=== PATIENT | male | born 1965 | race African-American/Black ===

== ENCOUNTER 2018-07-03 00:34 | Inpatient (IN) | payer MEDICAID ==
[~2018-07-03] VITALS: Ht 165.1 cm; Wt 77.1 kg
[2018-07-03] MEDS ORDERED: ONDANSETRON HCL 4MG/2ML INJ IV STA (02:15)
[2018-07-03] MEDS ORDERED: IPRATROPIUM BROMIDE (0.02%) 0.5MG/2.5ML NEB HHN STA (02:15)
[2018-07-03] MEDS ORDERED: METHYLPREDNISOLONE SOD SUCC 125 MG/2 ML VIAL IV STA (02:15)
[2018-07-03] MEDS: ALBUTEROL (0.083%) 2.5MG/3ML NEB HHN SCH ×3 (02:30→03:30)
[2018-07-03 03:25] LABS: CHLORIDE 106 mEq/L (98-107)
[2018-07-03 08:00] VITALS: BP 131/93
[2018-07-03 08:17] LABS: EOSINOPHILS % 7.6 % (0.0-5.0); HEMATOCRIT. 51.6 % (42.0-52.0); HEMOGLOBIN. 16.9 g/dL (14.0-18.0); LYMPHOCYTES % 12.8 % (20.0-50.0); MEAN CORPUSCULAR HEMOGLOBIN 28.7 pg (28.0-32.0); MEAN CORPUSCULAR VOLUME 87.4 fL (80.0-94.0); MEAN PLATELET VOLUME 9.4 fl (7.4-10.4); MONOCYTES % 6.6 % (2.0-8.0); PLATELET 290 x1000/uL (130-400); RED CELL DISTRIBUTION WIDTH 15.8 % (11.6-14.6)
[2018-07-03 09:00] VITALS: BP 131/93
[2018-07-03] MEDS ORDERED: ACETAMINOPHEN 325MG TABLET PO PRN (09:00)
[2018-07-03] MEDS ORDERED: ONDANSETRON HCL 4MG/2ML INJ IV PRN (09:00)
[2018-07-03] MEDS ORDERED: IPRATROPIUM/ALBUTEROL 0.5-3(2.5)MG/3ML NEB HHN PRN (09:00)
[2018-07-03 12:00] VITALS: BP 174/98
[2018-07-03 12:33] VITALS: BP 135/86
[2018-07-03] MEDS: GUAIFENESIN-DM 200MG-20MG/10ML UDC PO PRN (13:22)
[2018-07-03] MEDS: METHYLPREDNISOLONE SOD SUCC 40 MG/ML VIAL IV SCH ×2 (13:22→18:46)
[2018-07-03] MEDS: GUAIFENESIN 600MG ER TABLET PO SCH ×2 (13:26→20:48)
[2018-07-03 16:00] VITALS: BP 152/92
[2018-07-03 16:40] LABS: CLARITY URINE CLEAR (CLEAR); COLOR URINE YELLOW (YELLOW); KETONES URINE NEGATIVE (NEGATIVE); LEUKOCYTE ESTERASE URINE NEGATIVE (NEGATIVE); NITRITE URINE NEGATIVE (NEGATIVE); OCCULT BLOOD URINE NEGATIVE (NEGATIVE); PH URINE 6.5 (4.5-8.0); PROTEIN URINE NEGATIVE (NEGATIVE); SPECIFIC GRAVITY URINE 1.017 (1.005-1.030)
[2018-07-03] MEDS: IPRATROPIUM/ALBUTEROL 0.5-3(2.5)MG/3ML NEB HHN SCH ×2 (16:57→21:29)
[2018-07-03 16:58] LABS: *BARBITURATES SCREEN URINE NEGATIVE (NEGATIVE); *BENZODIAZEPINES SCREEN URINE NEGATIVE (NEGATIVE)
[2018-07-03 16:59] LABS: *AMPHETAMINES SCREEN URINE PRESUMTIVE POSITIVE (NEGATIVE); *COCAINE SCREEN URINE NEGATIVE (NEGATIVE); CANNABINOID URINE SCREEN PRESUMTIVE POSITIVE (NEGATIVE); METHADONE URINE SCREEN NEGATIVE (NEGATIVE); OPIATES URINE SCREEN NEGATIVE (NEGATIVE); PHENCYCLIDINE URINE SCREEN NEGATIVE (NEGATIVE)
[2018-07-03] MEDS: NICOTINE 14MG PATCH TD SCH (18:46)
[2018-07-03] MEDS: MONTELUKAST SODIUM 10MG TABLET PO SCH (18:46)
[2018-07-03] MEDS: AMLODIPINE 5MG TABLET PO SCH (18:51)
[2018-07-03 20:00] VITALS: BP_SYST 137; BP_SYST 160; BP_DIAS 100; BP_DIAS 95
[2018-07-04] VITALS: BP 137/95
[2018-07-04] MEDS: IPRATROPIUM/ALBUTEROL 0.5-3(2.5)MG/3ML NEB HHN SCH ×4 (01:34→20:24)
[2018-07-04] MEDS: METHYLPREDNISOLONE SOD SUCC 40 MG/ML VIAL IV SCH ×3 (02:03→17:20)
[2018-07-04 04:00] VITALS: BP 129/82
[2018-07-04 08:00] VITALS: BP 137/95
[2018-07-04] MEDS: NICOTINE 14MG PATCH TD SCH (09:35)
[2018-07-04] MEDS: GUAIFENESIN 600MG ER TABLET PO SCH ×2 (09:36→20:36)
[2018-07-04] MEDS: GUAIFENESIN-DM 200MG-20MG/10ML UDC PO PRN (09:36)
[2018-07-04] MEDS: AMLODIPINE 5MG TABLET PO SCH (09:36)
[2018-07-04 11:35] LABS: HEMOGLOBIN. 15.7 g/dL (14.0-18.0); MEAN CORPUSCULAR HEMOGLOBIN 28.1 pg (28.0-32.0); MEAN CORPUSCULAR VOLUME 87.4 fL (80.0-94.0); MEAN PLATELET VOLUME 9.3 fl (7.4-10.4); PLATELET 300 x1000/uL (130-400); RED BLOOD CELL COUNT 5.61 mill/uL (4.7-6.1); RED CELL DISTRIBUTION WIDTH 15.9 % (11.6-14.6)
[2018-07-04 12:00] LABS: CHLORIDE 103 mEq/L (98-107)
[2018-07-04 12:12] LABS: PLATELET ESTIMATE NORMAL
[2018-07-04 16:00] VITALS: BP 128/78
[2018-07-04] MEDS: MONTELUKAST SODIUM 10MG TABLET PO SCH (17:20)
[2018-07-04 20:00] VITALS: BP 139/92
[2018-07-05] VITALS: BP 132/93
[2018-07-05] MEDS: IPRATROPIUM/ALBUTEROL 0.5-3(2.5)MG/3ML NEB HHN SCH ×4 (00:44→12:50)
[2018-07-05] MEDS: METHYLPREDNISOLONE SOD SUCC 40 MG/ML VIAL IV SCH ×2 (01:51→09:22)
[2018-07-05 04:00] VITALS: BP 146/101
[2018-07-05 08:00] VITALS: BP 148/92
[2018-07-05] MEDS: GUAIFENESIN 600MG ER TABLET PO SCH (09:22)
[2018-07-05] MEDS: AMLODIPINE 5MG TABLET PO SCH (09:22)
[2018-07-05] MEDS: NICOTINE 14MG PATCH TD SCH (09:22)
[2018-07-05 12:00] VITALS: BP 162/100
== END 2018-07-05 15:40 | disposition home or self-care (01) | DRG 140 ==
LOC: ER 00:34 → 8WST 05:18 → EDBEDREQ 05:23 → EDBEDREQTM 05:23 → ENRESERV 08:11
PROVIDERS: ADMIT Internal Medicine; ATTEND Internal Medicine
DX: J44.1 Chronic obstructive pulmonary disease with (acute) exacerbation (principal); F12.90 Cannabis use, unspecified, uncomplicated; I10 Essential (primary) hypertension; F17.210 Nicotine dependence, cigarettes, uncomplicated; F15.90 Other stimulant use, unspecified, uncomplicated
CPT/HCPCS: 36415; 71045; 80048; 80305; 83880; 84484; 93005; 93970; 96374; 99285; J2405; J2920; J2930; J7611; J7620

== ENCOUNTER 2018-07-30 21:08 | Emergency (ER) | payer MEDICAID ==
[~2018-07-30] VITALS: Ht 154.9 cm; Wt 82.0 kg
[2018-07-30] MEDS ORDERED: ALBUTEROL (0.083%) 2.5MG/3ML NEB HHN STA (21:32)
[2018-07-30] MEDS ORDERED: IPRATROPIUM BROMIDE (0.02%) 0.5MG/2.5ML NEB HHN STA (21:32)
[2018-07-30] MEDS ORDERED: ONDANSETRON HCL 4MG/2ML INJ IV ONE (21:45)
[2018-07-30 21:58] LABS: HEMATOCRIT. 50.3 % (42.0-52.0); HEMOGLOBIN. 16.5 g/dL (14.0-18.0); MEAN CORPUSCULAR HEMOGLOBIN 28.4 pg (28.0-32.0); MEAN PLATELET VOLUME 9.3 fl (7.4-10.4); PLATELET 294 x1000/uL (130-400); RED BLOOD CELL COUNT 5.79 mill/uL (4.7-6.1); RED CELL DISTRIBUTION WIDTH 15.7 % (11.6-14.6)
[2018-07-30 22:00] LABS: CHLORIDE 105 mEq/L (98-107)
[2018-07-30 22:26] LABS: PLATELET ESTIMATE NORMAL
[2018-07-31] MEDS ORDERED: METHYLPREDNISOLONE SOD SUCC 125 MG/2 ML VIAL IV SCH
[2018-07-31] MEDS ORDERED: IPRATROPIUM BROMIDE (0.02%) 0.5MG/2.5ML NEB HHN SCH (00:34)
[2018-07-31] MEDS ORDERED: ALBUTEROL (0.083%) 2.5MG/3ML NEB HHN SCH (00:34)
[2018-07-31] MEDS ORDERED: IPRATROPIUM BROMIDE (0.02%) 0.5MG/2.5ML NEB ONE (00:43)
[2018-07-31] MEDS ORDERED: ALBUTEROL (0.083%) 2.5MG/3ML NEB ONE (00:43)
[2018-07-31 02:30] VITALS: BP 129/95
== END 2018-07-31 02:40 | disposition short-term general hospital (02) ==
LOC: ER 21:08 → CANBEDREQ 07-31 02:46
DX: J44.1 Chronic obstructive pulmonary disease with (acute) exacerbation (principal); F17.200 Nicotine dependence, unspecified, uncomplicated; F15.10 Other stimulant abuse, uncomplicated
CPT/HCPCS: 36415; 71045; 80053; 83880; 84484; 85025; 93005; 94644; 96374; 96375; 99285; J2405; J2930; J7611; Z7610

== ENCOUNTER 2018-11-17 11:48 | Emergency (ER) | payer MEDICAID ==
[~2018-11-17] VITALS: Ht 165.1 cm; Wt 88.0 kg
[2018-11-17] MEDS ORDERED: IPRATROPIUM BROMIDE (0.02%) 0.5MG/2.5ML NEB HHN STA (12:59)
[2018-11-17] MEDS ORDERED: ALBUTEROL (0.083%) 2.5MG/3ML NEB HHN STA (12:59)
[2018-11-17] MEDS ORDERED: MAGNESIUM 2 G PREMIX 50 ML IV STA (12:59)
[2018-11-17] MEDS ORDERED: METHYLPREDNISOLONE SOD SUCC 125 MG/2 ML VIAL IV STA (12:59)
[2018-11-17 13:07] LABS: HEMATOCRIT. 49.5 % (42.0-52.0); HEMOGLOBIN. 16.5 g/dL (14.0-18.0); MEAN CORPUSCULAR HEMOGLOBIN 28.5 pg (28.0-32.0); MEAN CORPUSCULAR VOLUME 85.3 fL (80.0-94.0); PLATELET 266 x1000/uL (130-400); RED CELL DISTRIBUTION WIDTH 16.6 % (11.6-14.6)
[2018-11-17 13:13] LABS: CHLORIDE 108 mEq/L (98-107)
[2018-11-17 13:30] LABS: PLATELET ESTIMATE NORMAL
[2018-11-17] MEDS ORDERED: SODIUM CHLORIDE 0.9% 1,000 ML IV ONE (14:07)
[2018-11-17] MEDS ORDERED: ENOXAPARIN 40MG/0.4ML SYR SUBCUT SCH (17:15)
[2018-11-17] MEDS ORDERED: GUAIFENESIN 200MG/10ML SUGAR FREE UDC PO PRN (17:15)
[2018-11-17] MEDS ORDERED: ACETAMINOPHEN 325MG TABLET PO PRN (17:15)
[2018-11-17] MEDS ORDERED: ONDANSETRON HCL 4MG/2ML INJ IV PRN (17:15)
[2018-11-17] MEDS ORDERED: DOCUSATE SODIUM 100MG CAPSULE PO PRN (17:15)
[2018-11-17] MEDS ORDERED: MAGNESIUM/ALUMINUM HYDROXIDE/SIMETHICONE 30ML UDC PO PRN (17:15)
[2018-11-17] MEDS ORDERED: IPRATROPIUM/ALBUTEROL 0.5-3(2.5)MG/3ML NEB INH PRN (17:15)
[2018-11-17] MEDS ORDERED: HYDROCODONE/ACETAMINOPHEN 5/325MG TABLET PO PRN (17:15)
[2018-11-17] MEDS ORDERED: CLONIDINE 0.1MG TABLET PO PRN (17:15)
[2018-11-17] MEDS ORDERED: DIPHENHYDRAMINE 50MG/ML VIAL IV PRN (17:15)
[2018-11-17 17:42] LABS: PHOSPHORUS 4.3 mg/dL (2.5-4.9)
[2018-11-17 19:20] VITALS: BP 160/94
== END 2018-11-18 00:09 | disposition left against medical advice (07) ==
LOC: ER 11:48 → EDBEDREQ 16:25 → ENRESERV 19:23 → CANRESERV 19:23 → CANBEDREQ 21:42 → ER 11-18 00:09
DX: J44.1 Chronic obstructive pulmonary disease with (acute) exacerbation (principal); F17.290 Nicotine dependence, other tobacco product, uncomplicated; Z71.6 Tobacco abuse counseling
CPT/HCPCS: 36415; 71045; 80053; 83735; 83880; 84100; 84484; 85025; 93005; 93970; 94644; 96365; 96375; 99285; 99406; A4217; J2930; J3475; J7030; J7611; Z7610

== ENCOUNTER 2018-12-09 21:24 | Inpatient (IN) | payer MEDICAID ==
[~2018-12-09] VITALS: Ht 170.2 cm; Wt 74.8 kg
[2018-12-09] MEDS ORDERED: ASPIRIN 81MG TABLET PO ONE (22:00)
[2018-12-09] MEDS ORDERED: METHYLPREDNISOLONE SOD SUCC 125 MG/2 ML VIAL IV STA (22:00)
[2018-12-09] MEDS ORDERED: ALBUTEROL (0.083%) 2.5MG/3ML NEB HHN STA (22:00)
[2018-12-09] MEDS ORDERED: IPRATROPIUM BROMIDE (0.02%) 0.5MG/2.5ML NEB HHN STA (22:00)
[2018-12-09 22:34] LABS: HEMOGLOBIN. 16.5 g/dL (14.0-18.0); MEAN CORPUSCULAR HEMOGLOBIN 29.2 pg (28.0-32.0); MEAN CORPUSCULAR VOLUME 85.1 fL (80.0-94.0); MEAN PLATELET VOLUME 8.8 fl (7.4-10.4); PLATELET 245 x1000/uL (130-400); RED BLOOD CELL COUNT 5.64 mill/uL (4.7-6.1); RED CELL DISTRIBUTION WIDTH 16.6 % (11.6-14.6)
[2018-12-09 22:39] LABS: CHLORIDE 105 mEq/L (98-107)
[2018-12-09 23:03] LABS: PLATELET ESTIMATE NORMAL
[2018-12-10] VITALS (7 sets, daily range): BP systolic 137–149; BP diastolic 85–104
[2018-12-10] MEDS ORDERED: LEVOFLOXACIN 500MG PREMIX 100 ML IV SCH ×2 (04:00→06:00)
[2018-12-10] MEDS ORDERED: IPRATROPIUM/ALBUTEROL 0.5-3(2.5)MG/3ML NEB HHN PRN (04:00)
[2018-12-10] MEDS: METHYLPREDNISOLONE SOD SUCC 40 MG/ML VIAL IV SCH ×3 (06:01→21:05)
[2018-12-10] MEDS: ENOXAPARIN 40MG/0.4ML SYR SUBCUT SCH (06:01)
[2018-12-10] MEDS: IPRATROPIUM/ALBUTEROL 0.5-3(2.5)MG/3ML NEB HHN SCH ×4 (08:42→21:25)
[2018-12-10] MEDS: NICOTINE 21MG PATCH TD SCH (09:14)
[2018-12-10] MEDS: FLUTICASONE PROPIONATE 50MCG/SPRAY BOTTLE BOTHNSTRLS SCH ×2 (09:14→21:05)
[2018-12-10] MEDS: AMLODIPINE 5MG TABLET PO SCH (21:05)
[2018-12-11] VITALS (7 sets, daily range): BP systolic 121–139; BP diastolic 73–94
[2018-12-11] MEDS: IPRATROPIUM/ALBUTEROL 0.5-3(2.5)MG/3ML NEB HHN SCH ×3 (00:39→11:21)
[2018-12-11] MEDS: METHYLPREDNISOLONE SOD SUCC 40 MG/ML VIAL IV SCH ×2 (05:55→15:17)
[2018-12-11] MEDS: NICOTINE 21MG PATCH TD SCH (09:08)
[2018-12-11] MEDS: FLUTICASONE PROPIONATE 50MCG/SPRAY BOTTLE BOTHNSTRLS SCH (09:08)
[2018-12-11] MEDS: AMLODIPINE 5MG TABLET PO SCH (09:08)
[2018-12-11] MEDS: ENOXAPARIN 40MG/0.4ML SYR SUBCUT SCH (09:08)
== END 2018-12-11 17:24 | disposition home or self-care (01) | DRG 139 ==
LOC: ER 21:24 → 7WST 23:49 → EDBEDREQ 12-10 00:02 → EDBEDREQTM 12-10 00:02 → ENRESERV 12-10 02:06
PROVIDERS: ADMIT Internal Medicine; ATTEND Internal Medicine
DX: J18.9 Pneumonia, unspecified organism (principal); J96.00 Acute respiratory failure, unspecified whether with hypoxia or hypercapnia; J44.1 Chronic obstructive pulmonary disease with (acute) exacerbation; F12.10 Cannabis abuse, uncomplicated; F15.10 Other stimulant abuse, uncomplicated; F17.210 Nicotine dependence, cigarettes, uncomplicated; I10 Essential (primary) hypertension; J44.0 Chronic obstructive pulmonary disease with (acute) lower respiratory infection; Z60.2 Problems related to living alone; Z71.6 Tobacco abuse counseling; Z71.51 Drug abuse counseling and surveillance of drug abuser; Z71.7 Human immunodeficiency virus [HIV] counseling
CPT/HCPCS: 36415; 71045; 83880; 84484; 93005; 94640; 96374; 99285; J1650; J1956; J2920; J2930; J7050; J7611; J7620

== ENCOUNTER 2019-04-22 10:27 | Emergency (ER) | payer MEDICAID ==
[~2019-04-22] VITALS: Ht 170.2 cm; Wt 59.0 kg
[2019-04-22] MEDS ORDERED: IPRATROPIUM BROMIDE (0.02%) 0.5MG/2.5ML NEB HHN STA (10:31)
[2019-04-22] MEDS ORDERED: ALBUTEROL (0.083%) 2.5MG/3ML NEB HHN STA (10:31)
[2019-04-22] MEDS ORDERED: METHYLPREDNISOLONE SOD SUCC 125 MG/2 ML VIAL IV STA (10:31)
[2019-04-22] MEDS ORDERED: MAGNESIUM 2 G PREMIX 50 ML IV ONE (10:45)
[2019-04-22 10:48] LABS: HEMATOCRIT. 48.9 % (42.0-52.0); HEMOGLOBIN. 16.2 g/dL (14.0-18.0); MEAN CORPUSCULAR HEMOGLOBIN 28.9 pg (28.0-32.0); MEAN CORPUSCULAR VOLUME 87.4 fL (80.0-94.0); MEAN PLATELET VOLUME 8.3 fl (7.4-10.4); PLATELET 336 x1000/uL (130-400); RED BLOOD CELL COUNT 5.59 mill/uL (4.7-6.1); RED CELL DISTRIBUTION WIDTH 15.7 % (11.6-14.6)
[2019-04-22 10:55] LABS: CHLORIDE 107 mEq/L (98-107); PROTHROMBIN TIME 9.8 sec (9.6-11.0)
[2019-04-22 11:13] LABS: PLATELET ESTIMATE NORMAL
[2019-04-22] MEDS ORDERED: GUAIFENESIN 200MG/10ML SUGAR FREE UDC PO PRN (12:30)
[2019-04-22] MEDS ORDERED: MAGNESIUM/ALUMINUM HYDROXIDE/SIMETHICONE 30ML UDC PO PRN (12:30)
[2019-04-22] MEDS ORDERED: DOCUSATE SODIUM 100MG CAPSULE PO PRN (12:30)
[2019-04-22] MEDS ORDERED: CLONIDINE 0.1MG TABLET PO PRN (12:30)
[2019-04-22] MEDS ORDERED: ENOXAPARIN 40MG/0.4ML SYR SUBCUT SCH (12:30)
[2019-04-22] MEDS ORDERED: NITROGLYCERIN 0.4MG TABLET SL SL PRN (12:30)
[2019-04-22] MEDS ORDERED: GUAIFENESIN/DM 600MG/30MG ER TAB 12HR PO SCH (12:30)
[2019-04-22] MEDS ORDERED: ACETAMINOPHEN 325MG TABLET PO PRN (12:30)
[2019-04-22] MEDS ORDERED: LORAZEPAM 0.5MG TABLET PO PRN (12:30)
[2019-04-22] MEDS ORDERED: IPRATROPIUM/ALBUTEROL 0.5-3(2.5)MG/3ML NEB NEB PRN (12:30)
[2019-04-22] MEDS ORDERED: KETOROLAC 15MG/ML VIAL IV PRN (12:30)
[2019-04-22] MEDS ORDERED: IPRATROPIUM/ALBUTEROL 0.5-3(2.5)MG/3ML NEB HHN SCH (12:30)
[2019-04-22] MEDS ORDERED: ZOLPIDEM TARTRATE 5MG TABLET PO PRN (12:30)
[2019-04-22] MEDS ORDERED: ONDANSETRON HCL 4MG/2ML INJ IV PRN (12:30)
[2019-04-22] MEDS ORDERED: LEVOFLOXACIN 500MG PREMIX 100 ML IV SCH (12:30)
[2019-04-22] MEDS ORDERED: METHYLPREDNISOLONE SOD SUCC 125 MG/2 ML VIAL IV SCH (14:00)
[2019-04-22 14:39] LABS: BG BASE EXCESS 0.1 mmol/L (-2.0-2.0); BG BILEVEL POS AIRWAY PRESSURE 15/5; BG CARBOXYHEMOGLOBIN 2.1 % (0.5-1.5); BG DEOXYHEMOGLOBIN 5.6 % (0.0-5.0); BG FRACTION INSPIRED OXYGEN 36; BG HCO3 ACT 25.7 mmol/L (22.0-26.0); BG METHEMOGLOBIN 0.3 % (0.0-1.5); BG OXYGEN SATURATION 94.3 % (92.0-98.5); BG PCO2 45.1 mmHg (35.0-45.0); BG PH 7.374 (7.350-7.450); BG PO2 74.3 mmHg (75.0-100.0); BG SAMPLE SITE RIGHT BRACHIAL; BG TOTAL HEMOGLOBIN 17.1 g/dL (12.0-18.0); BG VENT MODE MASK - BIPAP; BG VENT RATE 16 set
[2019-04-22 14:44] VITALS: BP 131/78
[2019-04-22] MEDS ORDERED: DILTIAZEM HCL 60MG TABLET PO SCH (18:00)
[2019-04-22] MEDS ORDERED: FAMOTIDINE 20MG TABLET PO SCH (21:00)
[2019-04-23] MEDS ORDERED: ASPIRIN 325MG EC TABLET PO SCH (09:00)
== END 2019-04-22 15:30 | disposition left against medical advice (07) ==
LOC: ER 10:56 → EDBEDREQ 12:18 → EDBEDREQSVC 12:18 → CANRESERV 14:58 → ENRESERV 14:58 → CANBEDREQ 15:26 → ER 15:30
DX: J96.90 Respiratory failure, unspecified, unspecified whether with hypoxia or hypercapnia (principal); J44.1 Chronic obstructive pulmonary disease with (acute) exacerbation; F17.200 Nicotine dependence, unspecified, uncomplicated; F12.10 Cannabis abuse, uncomplicated; F15.10 Other stimulant abuse, uncomplicated
CPT/HCPCS: 36415; 36600; 71045; 80053; 80061; 82375; 82805; 83036; 83605; 83880; 84484; 85025; 85610; 87040; 93005; 93970; 94660; 96365; 96375; 99291; J2930; J3475; J7611; Z7610; 94644

== ENCOUNTER 2019-07-12 20:40 | Emergency (ER) | payer MEDICAID ==
[~2019-07-12] VITALS: Ht 175.3 cm; Wt 72.0 kg
[2019-07-12 20:44] VITALS: BP 138/94
== END 2019-07-12 22:25 | disposition left against medical advice (07) ==
LOC: ER 20:40
DX: Z53.21 Procedure and treatment not carried out due to patient leaving prior to being seen by health care provider (principal)

== ENCOUNTER 2019-09-16 21:46 | Emergency (ER) | payer MEDICAID ==
[~2019-09-16] VITALS: Ht 165.1 cm; Wt 82.0 kg
[2019-09-16] MEDS ORDERED: PREDNISONE 20MG TABLET PO STA (22:48)
[2019-09-16] MEDS ORDERED: ALBUTEROL (0.083%) 2.5MG/3ML NEB HHN STA (22:48)
[2019-09-16] MEDS ORDERED: IPRATROPIUM BROMIDE (0.02%) 0.5MG/2.5ML NEB HHN STA (22:48)
[2019-09-17 02:19] VITALS: BP 149/88
== END 2019-09-17 02:29 | disposition home or self-care (01) ==
LOC: ER 21:46
DX: J44.1 Chronic obstructive pulmonary disease with (acute) exacerbation (principal); F17.290 Nicotine dependence, other tobacco product, uncomplicated
CPT/HCPCS: 94640; 99283; J7512; Z7610

== ENCOUNTER 2021-01-15 12:44 | Inpatient (IN) | payer MEDICAID ==
[~2021-01-15] VITALS: Ht 165.1 cm; Wt 81.6 kg
[2021-01-15 16:06] LABS: CHLORIDE 102 mEq/L (98-107); HEMATOCRIT. 56.1 % (42.0-52.0); HEMOGLOBIN. 18.8 g/dL (14.0-18.0); MEAN CORPUSCULAR VOLUME 89.5 fL (80.0-94.0); MEAN PLATELET VOLUME 9.5 fl (7.4-10.4); PLATELET 262 x1000/uL (130-400); RED BLOOD CELL COUNT 6.27 mill/uL (4.7-6.1); RED CELL DISTRIBUTION WIDTH 15.5 % (11.6-14.6)
[2021-01-15] MEDS ORDERED: CLONIDINE 0.1MG TABLET PO PRN (16:30)
[2021-01-15] MEDS ORDERED: DOCUSATE SODIUM 100MG CAPSULE PO PRN (16:30)
[2021-01-15] MEDS ORDERED: IPRATROPIUM/ALBUTEROL 0.5-3(2.5)MG/3ML NEB NEB PRN (16:30)
[2021-01-15] MEDS ORDERED: ONDANSETRON HCL 4MG/2ML INJ IV PRN (16:30)
[2021-01-15] MEDS ORDERED: ACETAMINOPHEN 325MG TABLET PO PRN ×2 (16:30)
[2021-01-15] MEDS ORDERED: NITROGLYCERIN 0.4MG TABLET SL SL PRN (16:30)
[2021-01-15] MEDS ORDERED: ZOLPIDEM TARTRATE 5MG TABLET PO PRN (16:30)
[2021-01-15] MEDS ORDERED: ENOXAPARIN 40MG/0.4ML SYR SUBCUT SCH (16:30)
[2021-01-15] MEDS ORDERED: MAGNESIUM/ALUMINUM HYDROXIDE/SIMETHICONE 30ML UDC PO PRN (16:30)
[2021-01-15 16:52] LABS: PLATELET ESTIMATE NORMAL
[2021-01-15] MEDS: ENOXAPARIN 30MG/0.3ML SYR SUBCUT SCH (17:15)
[2021-01-15] MEDS: FAMOTIDINE 20MG TABLET PO SCH (17:16)
[2021-01-15 18:18] LABS: *AMPHETAMINES SCREEN URINE NEGATIVE (NEGATIVE); *BARBITURATES SCREEN URINE NEGATIVE (NEGATIVE); *BENZODIAZEPINES SCREEN URINE NEGATIVE (NEGATIVE); *COCAINE SCREEN URINE NEGATIVE (NEGATIVE); METHADONE URINE SCREEN NEGATIVE (NEGATIVE); OPIATES URINE SCREEN NEGATIVE (NEGATIVE); PHENCYCLIDINE URINE SCREEN NEGATIVE (NEGATIVE)
[2021-01-15 18:19] LABS: CANNABINOID URINE SCREEN NEGATIVE (NEGATIVE)
[2021-01-15 19:58] LABS: FOLIC ACID (FOLATE) SERUM 14.9 ng/mL (>5.38)
[2021-01-15] MEDS: FUROSEMIDE 40MG/4ML VIAL IVP SCH (21:37)
[2021-01-15 22:00] VITALS: BP 140/80
[2021-01-16] VITALS: BP 95/69
[2021-01-16 00:30] LABS: CREATINE KINASE MB FRACTION 21.7 ng/mL (0.5-3.6)
[2021-01-16 04:00] VITALS: BP 104/68
[2021-01-16 06:32] LABS: HEMATOCRIT. 57.6 % (42.0-52.0); HEMOGLOBIN. 18.5 g/dL (14.0-18.0); MEAN CORPUSCULAR HEMOGLOBIN 28.8 pg (28.0-32.0); MEAN CORPUSCULAR VOLUME 89.8 fL (80.0-94.0); PLATELET 215 x1000/uL (130-400); RED BLOOD CELL COUNT 6.41 mill/uL (4.7-6.1); RED CELL DISTRIBUTION WIDTH 15.8 % (11.6-14.6)
[2021-01-16 08:00] VITALS: BP 145/91
[2021-01-16 08:11] LABS: CHLORIDE 102 mEq/L (98-107)
[2021-01-16 08:19] LABS: PHOSPHORUS 4.9 mg/dL (2.5-4.9)
[2021-01-16 08:21] LABS: CREATINE KINASE 768 IU/L (39-308); CREATINE KINASE MB FRACTION 16.9 ng/mL (0.5-3.6)
[2021-01-16] MEDS: FAMOTIDINE 20MG TABLET PO SCH (09:14)
[2021-01-16] MEDS: FUROSEMIDE 40MG/4ML VIAL IVP SCH ×2 (09:14→20:19)
[2021-01-16] MEDS: ASPIRIN 325MG EC TABLET PO SCH (09:14)
[2021-01-16] MEDS ORDERED: SODIUM POLYSTYRENE SULFONATE 15 G/60 ML BOT PO NR (11:00)
[2021-01-16 12:00] VITALS: BP 151/90
[2021-01-16 16:00] VITALS: BP 142/88
[2021-01-16] MEDS: ENOXAPARIN 30MG/0.3ML SYR SUBCUT SCH (17:14)
[2021-01-16 20:00] VITALS: BP 97/65
[2021-01-16 20:56] LABS: NUCLEATED RED BLOOD CELLS 4 /100 WBC; PLATELET ESTIMATE NORMAL
[2021-01-17] VITALS: BP 110/72
[2021-01-17 06:40] LABS: HEMATOCRIT. 56.4 % (42.0-52.0); HEMOGLOBIN. 18.1 g/dL (14.0-18.0); MEAN CORPUSCULAR HEMOGLOBIN 28.9 pg (28.0-32.0); MEAN CORPUSCULAR VOLUME 90.1 fL (80.0-94.0); MEAN PLATELET VOLUME 9.7 fl (7.4-10.4); PLATELET 255 x1000/uL (130-400); RED BLOOD CELL COUNT 6.26 mill/uL (4.7-6.1); RED CELL DISTRIBUTION WIDTH 16.2 % (11.6-14.6)
[2021-01-17 06:45] LABS: CHLORIDE 99 mEq/L (98-107)
[2021-01-17 06:51] LABS: PHOSPHORUS 3.3 mg/dL (2.5-4.9)
[2021-01-17 08:00] VITALS: BP 104/77
[2021-01-17] MEDS: FUROSEMIDE 40MG/4ML VIAL IVP SCH ×2 (08:23→21:19)
[2021-01-17] MEDS: ASPIRIN 325MG EC TABLET PO SCH (08:23)
[2021-01-17] MEDS: FAMOTIDINE 20MG TABLET PO SCH (08:23)
[2021-01-17] MEDS: GUAIFENESIN 200MG/10ML SUGAR FREE UDC PO PRN ×2 (08:30→17:18)
[2021-01-17 12:00] VITALS: BP 128/87
[2021-01-17 16:00] VITALS: BP 98/71
[2021-01-17] MEDS: ENOXAPARIN 30MG/0.3ML SYR SUBCUT SCH (17:18)
[2021-01-17 20:00] VITALS: BP 136/82
[2021-01-17 20:37] LABS: NUCLEATED RED BLOOD CELLS 1 /100 WBC; PLATELET ESTIMATE NORMAL
[2021-01-18] VITALS: BP 126/93
[2021-01-18 04:00] VITALS: BP 109/82
[2021-01-18 08:00] VITALS: BP 115/76
[2021-01-18] MEDS: FAMOTIDINE 20MG TABLET PO SCH (08:33)
[2021-01-18] MEDS: ASPIRIN 325MG EC TABLET PO SCH (08:33)
[2021-01-18] MEDS: FUROSEMIDE 40MG/4ML VIAL IVP SCH (08:33)
[2021-01-18 10:52] VITALS: BP 115/76
== END 2021-01-18 11:30 | disposition home or self-care (01) | DRG 194 ==
LOC: ER 12:44 → 8WST 15:07 → ENRESERV 19:24
PROVIDERS: ADMIT Internal Medicine; ATTEND Internal Medicine
DX: I11.0 Hypertensive heart disease with heart failure (principal); J96.01 Acute respiratory failure with hypoxia; E44.0 Moderate protein-calorie malnutrition; N17.9 Acute kidney failure, unspecified; I50.43 Acute on chronic combined systolic (congestive) and diastolic (congestive) heart failure; J44.9 Chronic obstructive pulmonary disease, unspecified; E83.51 Hypocalcemia; E87.1 Hypo-osmolality and hyponatremia; E87.5 Hyperkalemia; F15.10 Other stimulant abuse, uncomplicated; Z20.822 Contact with and (suspected) exposure to COVID-19; Z68.30 Body mass index [BMI] 30.0-30.9, adult
CPT/HCPCS: 36415; 71045; 76770; 80053; 80061; 80305; 82550; 82553; 82607; 82746; 83036; 83540; 83550; 83735; 83880; 84100; 84484; 85025; 87426; 93005; 93306; 93970; 99285; J1650; J1940

== ENCOUNTER 2022-05-06 05:34 | Inpatient (IN) | payer OTHER ==
[~2022-05-06] VITALS: Ht 165.1 cm; Wt 78.0 kg
[~2022-05-06 05:34] MED LIST: ATOR20TA PO; BLOO-1465 MT; FURO-152 PO; INSLIS SUBCUT; LANC-30 TP; LANC-335 MC; LIDO1ADH23 TP; PULM50 HHN; VALS40TA11 PO
[2022-05-06] MEDS ORDERED: ALBUTEROL (0.083%) 2.5MG/3ML NEB HHN STA (06:31)
[2022-05-06] MEDS ORDERED: IPRATROPIUM BROMIDE (0.02%) 0.5MG/2.5ML NEB HHN STA (06:31)
[2022-05-06] MEDS ORDERED: METHYLPREDNISOLONE SOD SUCC 125 MG/2 ML VIAL IV STA (06:31)
[2022-05-06 07:37] LABS: BASOPHILS % 0.9 % (0.0-2.0); EOSINOPHILS % 1.7 % (0.0-5.0); HEMATOCRIT. 53.7 % (42.0-52.0); HEMOGLOBIN. 16.9 g/dL (14.0-18.0); LYMPHOCYTES % 19.1 % (20.0-50.0); MEAN CORPUSCULAR HEMOGLOBIN 26.2 pg (28.0-32.0); MEAN CORPUSCULAR VOLUME 83.5 fL (80.0-94.0); MEAN PLATELET VOLUME 9.6 fl (7.4-10.4); MONOCYTES % 9.7 % (2.0-8.0); NEUTROPHILS % 68.6 % (40.0-76.0); PLATELET 220 x1000/uL (130-400); RED BLOOD CELL COUNT 6.43 mill/uL (4.7-6.1); RED CELL DISTRIBUTION WIDTH 16.7 % (11.6-14.6)
[2022-05-06 07:51] LABS: CHLORIDE 98 mEq/L (98-107)
[2022-05-06 08:51] LABS: BG BASE EXCESS 7.4 mmol/L (-2.0-2.0); BG CARBOXYHEMOGLOBIN 5.7 % (0.5-1.5); BG HCO3 ACT 42.3 mmol/L (22.0-26.0); BG METHEMOGLOBIN 0.4 % (0.0-1.5); BG OXYGEN SATURATION 90.4 % (92.0-98.5); BG OXYHEMOGLOBIN 84.9 % (94.0-97.0); BG PCO2 119.3 mmHg (35.0-45.0); BG PH 7.168 (7.350-7.450); BG PO2 69.8 mmHg (75.0-100.0); BG SAMPLE SITE LEFT BRACHIAL; BG TOTAL HEMOGLOBIN 17.8 g/dL (12.0-18.0); BG VENT MODE MASK - SIMPLE
[2022-05-06 08:59] LABS: BG FRACTION INSPIRED OXYGEN 50
[2022-05-06] MEDS ORDERED: ACETAMINOPHEN 325MG TABLET PO PRN (12:00)
[2022-05-06] MEDS ORDERED: ONDANSETRON HCL 4MG/2ML INJ IV PRN (12:00)
[2022-05-06 14:02] LABS: BG CARBOXYHEMOGLOBIN 4.7 % (0.5-1.5); BG DEOXYHEMOGLOBIN 0.7 % (0.0-5.0); BG FRACTION INSPIRED OXYGEN 60; BG HCO3 ACT 36.5 mmol/L (22.0-26.0); BG METHEMOGLOBIN 0.5 % (0.0-1.5); BG OXYGEN SATURATION 99.3 % (92.0-98.5); BG OXYHEMOGLOBIN 94.1 % (94.0-97.0); BG PCO2 94.7 mmHg (35.0-45.0); BG PH 7.204 (7.350-7.450); BG PO2 166.7 mmHg (75.0-100.0); BG SAMPLE SITE RIGHT RADIAL; BG TOTAL HEMOGLOBIN 17.6 g/dL (12.0-18.0); BG VENT MODE MASK - BIPAP
[2022-05-06 14:50] VITALS: BP 112/70
[2022-05-06 16:00] VITALS: BP 114/78
[2022-05-06] MEDS: IPRATROPIUM/ALBUTEROL 0.5-3(2.5)MG/3ML NEB HHN SCH ×2 (16:00→21:15)
[2022-05-06] MEDS ORDERED: FUROSEMIDE 40MG/4ML VIAL IVP SCH (17:00)
[2022-05-06 17:15] VITALS: BP 139/85
[2022-05-06 17:41] LABS: BG BASE EXCESS 4.4 mmol/L (-2.0-2.0); BG DEOXYHEMOGLOBIN 4.3 % (0.0-5.0); BG FRACTION INSPIRED OXYGEN 50; BG HCO3 ACT 36.2 mmol/L (22.0-26.0); BG METHEMOGLOBIN 0.4 % (0.0-1.5); BG OXYGEN SATURATION 95.5 % (92.0-98.5); BG OXYHEMOGLOBIN 92.3 % (94.0-97.0); BG PCO2 90.4 mmHg (35.0-45.0); BG PO2 87.9 mmHg (75.0-100.0); BG SAMPLE SITE RIGHT RADIAL; BG TOTAL HEMOGLOBIN 16.7 g/dL (12.0-18.0); BG TOTAL RESPIRATORY RATE 22 b/min; BG VENT MODE MASK - BIPAP
[2022-05-06 18:00] VITALS: BP 115/80
[2022-05-06 20:00] VITALS: BP 152/93
[2022-05-06] MEDS ORDERED: BUDESONIDE 0.5MG/2ML NEB HHN SCH (21:00)
[2022-05-06 22:00] VITALS: BP 132/76
[2022-05-07] VITALS (12 sets, daily range): BP systolic 101–142; BP diastolic 67–97
[2022-05-07 00:15] LABS: *AMPHETAMINES SCREEN URINE PRESUMTIVE POSITIVE (NEGATIVE); *BARBITURATES SCREEN URINE NEGATIVE (NEGATIVE); *BENZODIAZEPINES SCREEN URINE NEGATIVE (NEGATIVE); *COCAINE SCREEN URINE PRESUMTIVE POSITIVE (NEGATIVE); CANNABINOID URINE SCREEN NEGATIVE (NEGATIVE); METHADONE URINE SCREEN NEGATIVE (NEGATIVE); OPIATES URINE SCREEN NEGATIVE (NEGATIVE); PHENCYCLIDINE URINE SCREEN NEGATIVE (NEGATIVE)
[2022-05-07] MEDS: IPRATROPIUM/ALBUTEROL 0.5-3(2.5)MG/3ML NEB HHN SCH ×4 (01:32→21:08)
[2022-05-07 07:45] LABS: HEMATOCRIT. 49.5 % (42.0-52.0); HEMOGLOBIN. 15.4 g/dL (14.0-18.0); MEAN CORPUSCULAR HEMOGLOBIN 26.3 pg (28.0-32.0); MEAN CORPUSCULAR VOLUME 84.4 fL (80.0-94.0); MEAN PLATELET VOLUME 9.4 fl (7.4-10.4); PLATELET 184 x1000/uL (130-400); RED BLOOD CELL COUNT 5.86 mill/uL (4.7-6.1); RED CELL DISTRIBUTION WIDTH 16.9 % (11.6-14.6)
[2022-05-07] MEDS: FUROSEMIDE 40MG/4ML VIAL IVP SCH ×2 (08:30→17:40)
[2022-05-07] MEDS ORDERED: ENOXAPARIN 80MG/0.8ML SYR SUBCUT SCH (10:00)
[2022-05-07 10:14] LABS: BG BASE EXCESS 7.6 mmol/L (-2.0-2.0); BG CARBOXYHEMOGLOBIN 1.8 % (0.5-1.5); BG DEOXYHEMOGLOBIN 9.7 % (0.0-5.0); BG FRACTION INSPIRED OXYGEN 40; BG METHEMOGLOBIN 0.3 % (0.0-1.5); BG OXYGEN SATURATION 90.1 % (92.0-98.5); BG OXYHEMOGLOBIN 88.2 % (94.0-97.0); BG PCO2 97.1 mmHg (35.0-45.0); BG PH 7.233 (7.350-7.450); BG PO2 63.9 mmHg (75.0-100.0); BG SAMPLE SITE RIGHT BRACHIAL; BG TOTAL HEMOGLOBIN 16.8 g/dL (12.0-18.0); BG TOTAL RESPIRATORY RATE 28 b/min; BG VENT MODE MASK - BIPAP
[2022-05-07 13:23] LABS: INR 1.2; PROTHROMBIN TIME 12.7 sec (9.6-11.0)
[2022-05-07] MEDS: METHYLPREDNISOLONE SOD SUCC 125 MG/2 ML VIAL IV SCH ×2 (17:36→20:58)
[2022-05-07] MEDS: ENOXAPARIN 80MG/0.8ML SYR SUBCUT SCH (20:57)
[2022-05-08] VITALS (12 sets, daily range): BP systolic 117–145; BP diastolic 68–91
[2022-05-08] MEDS: IPRATROPIUM/ALBUTEROL 0.5-3(2.5)MG/3ML NEB HHN SCH ×4 (02:38→20:12)
[2022-05-08] MEDS: FUROSEMIDE 40MG/4ML VIAL IVP SCH ×2 (05:17→19:12)
[2022-05-08] MEDS: METHYLPREDNISOLONE SOD SUCC 125 MG/2 ML VIAL IV SCH ×3 (05:17→21:21)
[2022-05-08] MEDS: ENOXAPARIN 80MG/0.8ML SYR SUBCUT SCH (08:29)
[2022-05-08] MEDS: ENOXAPARIN 40MG/0.4ML SYR SUBCUT SCH (11:00)
[2022-05-08 11:08] LABS: HEMATOCRIT. 51.3 % (42.0-52.0); HEMOGLOBIN. 15.8 g/dL (14.0-18.0); MEAN CORPUSCULAR HEMOGLOBIN 26.2 pg (28.0-32.0); MEAN CORPUSCULAR VOLUME 85.1 fL (80.0-94.0); MEAN PLATELET VOLUME 9.4 fl (7.4-10.4); PLATELET 167 x1000/uL (130-400); RED BLOOD CELL COUNT 6.03 mill/uL (4.7-6.1); RED CELL DISTRIBUTION WIDTH 16.8 % (11.6-14.6)
[2022-05-08 11:18] LABS: CHLORIDE 94 mEq/L (98-107)
[2022-05-08 11:49] LABS: BG BASE EXCESS 9.8 mmol/L (-2.0-2.0); BG CARBOXYHEMOGLOBIN 0.8 % (0.5-1.5); BG FRACTION INSPIRED OXYGEN 36; BG HCO3 ACT 40.8 mmol/L (22.0-26.0); BG METHEMOGLOBIN 0.3 % (0.0-1.5); BG OXYGEN SATURATION 88.9 % (92.0-98.5); BG OXYHEMOGLOBIN 87.9 % (94.0-97.0); BG PCO2 87.7 mmHg (35.0-45.0); BG PH 7.286 (7.350-7.450); BG PO2 59.4 mmHg (75.0-100.0); BG SAMPLE SITE RIGHT RADIAL; BG TOTAL HEMOGLOBIN 15.7 g/dL (12.0-18.0); BG VENT MODE NASAL CANNULA
[2022-05-08] MEDS ORDERED: DEXTROSE 50% WATER 50ML SYRINGE IV PRN (12:45)
[2022-05-08] MEDS: INSULIN LISPRO 100 UNITS/ML SUBCUT SCH ×3 (13:00→21:21)
[2022-05-08 16:37] LABS: PLATELET ESTIMATE NORMAL
[2022-05-08] MEDS: BLOOD SUGAR DIAGNOSTIC STRIP TEST SCH ×2 (17:30→20:49)
[2022-05-09] VITALS (16 sets, daily range): BP systolic 102–145; BP diastolic 71–102
[2022-05-09] MEDS: IPRATROPIUM/ALBUTEROL 0.5-3(2.5)MG/3ML NEB HHN SCH ×4 (01:28→20:49)
[2022-05-09] MEDS: FUROSEMIDE 40MG/4ML VIAL IVP SCH ×2 (05:13→17:19)
[2022-05-09] MEDS: METHYLPREDNISOLONE SOD SUCC 125 MG/2 ML VIAL IV SCH (05:13)
[2022-05-09 06:50] LABS: PLATELET ESTIMATE NORMAL
[2022-05-09] MEDS: BLOOD SUGAR DIAGNOSTIC STRIP TEST SCH ×4 (08:01→22:27)
[2022-05-09] MEDS: INSULIN LISPRO 100 UNITS/ML SUBCUT SCH ×4 (09:07→22:38)
[2022-05-09 10:01] LABS: BG BASE EXCESS 13.9 mmol/L (-2.0-2.0); BG CARBOXYHEMOGLOBIN 0.7 % (0.5-1.5); BG DEOXYHEMOGLOBIN 12.1 % (0.0-5.0); BG FRACTION INSPIRED OXYGEN 36; BG HCO3 ACT 44.2 mmol/L (22.0-26.0); BG METHEMOGLOBIN 0.4 % (0.0-1.5); BG OXYGEN SATURATION 87.8 % (92.0-98.5); BG OXYHEMOGLOBIN 86.8 % (94.0-97.0); BG PCO2 79.7 mmHg (35.0-45.0); BG PH 7.362 (7.350-7.450); BG PO2 56.5 mmHg (75.0-100.0); BG SAMPLE SITE RIGHT BRACHIAL; BG TOTAL HEMOGLOBIN 16.8 g/dL (12.0-18.0); BG VENT MODE NASAL CANNULA
[2022-05-09] MEDS: METHYLPREDNISOLONE SOD SUCC 40 MG/ML VIAL IV SCH ×2 (14:09→22:37)
[2022-05-09] MEDS: ENOXAPARIN 40MG/0.4ML SYR SUBCUT SCH (14:09)
[2022-05-10] VITALS (15 sets, daily range): BP systolic 121–155; BP diastolic 56–95
[2022-05-10] MEDS: IPRATROPIUM/ALBUTEROL 0.5-3(2.5)MG/3ML NEB HHN SCH ×2 (02:13→10:33)
[2022-05-10] MEDS: FUROSEMIDE 40MG/4ML VIAL IVP SCH (05:15)
[2022-05-10] MEDS: METHYLPREDNISOLONE SOD SUCC 40 MG/ML VIAL IV SCH ×2 (05:15→14:45)
[2022-05-10] MEDS: BLOOD SUGAR DIAGNOSTIC STRIP TEST SCH ×2 (07:44→12:25)
[2022-05-10] MEDS: INSULIN LISPRO 100 UNITS/ML SUBCUT SCH ×2 (08:14→12:43)
[2022-05-10] MEDS: ENOXAPARIN 40MG/0.4ML SYR SUBCUT SCH (10:27)
[2022-05-10] MEDS ORDERED: FLUT1DIS3 INH (14:25)
[2022-05-10] MEDS ORDERED: FURO-151 MT (14:25)
[2022-05-10] MEDS ORDERED: ALBU18HF2 IH (14:25)
[2022-05-10] MEDS ORDERED: P20 MT (14:25)
== END 2022-05-10 16:30 | disposition home or self-care (01) | DRG 812 ==
LOC: ER 05:34 → 5EST 09:24 → EDBEDREQSVC 09:27 → EDBEDREQTM 09:27 → EDBEDREQ 09:27 → EDBEDREQSVC 12:15 → EDBEDREQTM 12:51 → 5EST 17:40
PROVIDERS: ADMIT Internal Medicine; ATTEND Internal Medicine
PROC: 5A09457 Assistance with Respiratory Ventilation, 24-96 Consecutive Hours, Continuous Positive Airway Pressure (ICD-10-PCS; principal; 2022-05-06)
PROC: 5A09357 Assistance with Respiratory Ventilation, Less than 24 Consecutive Hours, Continuous Positive Airway Pressure (ICD-10-PCS; 2022-05-08)
DX: T43.651A Poisoning by methamphetamines accidental (unintentional), initial encounter (principal); N17.0 Acute kidney failure with tubular necrosis; J96.02 Acute respiratory failure with hypercapnia; J96.01 Acute respiratory failure with hypoxia; I21.A1 Myocardial infarction type 2; J68.0 Bronchitis and pneumonitis due to chemicals, gases, fumes and vapors; I50.23 Acute on chronic systolic (congestive) heart failure; E44.1 Mild protein-calorie malnutrition; E87.20 Acidosis, unspecified; I11.0 Hypertensive heart disease with heart failure; I27.29 Other secondary pulmonary hypertension; R74.01 Elevation of levels of liver transaminase levels; F14.10 Cocaine abuse, uncomplicated; F17.210 Nicotine dependence, cigarettes, uncomplicated; Z20.822 Contact with and (suspected) exposure to COVID-19; Z68.28 Body mass index [BMI] 28.0-28.9, adult; Z59.00 Homelessness unspecified; Z99.81 Dependence on supplemental oxygen; Y92.89 Other specified places as the place of occurrence of the external cause
CPT/HCPCS: 36415; 36600; 71045; 78580; 80048; 80053; 80305; 82140; 82375; 82805; 82962; 83605; 83880; 84484; 85025; 87426; 93005; 93306; 93970; 94640; 94660; 99291; J1650; J1815; J1940; J2920; J2930; J7626

== ENCOUNTER 2022-05-12 08:38 | Inpatient (IN) | payer OTHER ==
[~2022-05-12] VITALS: Ht 170.2 cm; Wt 73.6 kg
[~2022-05-12 08:38] MED LIST changes: +ALBU18HF2 IH; +FLUT1DIS3 INH; +FURO-151 MT; +P20 MT
[2022-05-12] MEDS ORDERED: IPRATROPIUM/ALBUTEROL 0.5-3(2.5)MG/3ML NEB HHN ONE (10:15)
[2022-05-12] MEDS ORDERED: METHYLPREDNISOLONE SOD SUCC 125 MG/2 ML VIAL IV ONE (10:15)
[2022-05-12 11:30] LABS: BASOPHILS % 0.4 % (0.0-2.0); EOSINOPHILS % 0.1 % (0.0-5.0); HEMOGLOBIN. 17.8 g/dL (14.0-18.0); LYMPHOCYTES % 9.7 % (20.0-50.0); MEAN CORPUSCULAR HEMOGLOBIN 26.3 pg (28.0-32.0); MEAN CORPUSCULAR VOLUME 84.1 fL (80.0-94.0); MONOCYTES % 10.6 % (2.0-8.0); NEUTROPHILS % 79.2 % (40.0-76.0); PLATELET 158 x1000/uL (130-400); RED BLOOD CELL COUNT 6.78 mill/uL (4.7-6.1); RED CELL DISTRIBUTION WIDTH 17.3 % (11.6-14.6)
[2022-05-12 11:44] LABS: CHLORIDE 92 mEq/L (98-107)
[2022-05-12] MEDS ORDERED: SODIUM CHLORIDE 0.9% 1,000 ML IV ONE (12:00)
[2022-05-12] MEDS ORDERED: METHYLPREDNISOLONE SOD SUCC 125 MG/2 ML VIAL IV NR (12:30)
[2022-05-12 17:29] VITALS: BP 141/98
[2022-05-12 17:30] VITALS: BP 141/98
[2022-05-12] MEDS ORDERED: ONDANSETRON HCL 4MG/2ML INJ IV PRN (17:30)
[2022-05-12] MEDS ORDERED: ACETAMINOPHEN 325MG TABLET PO PRN (17:30)
[2022-05-12] MEDS ORDERED: IPRATROPIUM/ALBUTEROL 0.5-3(2.5)MG/3ML NEB HHN SCH (18:00)
[2022-05-12 20:00] VITALS: BP 95/60
[2022-05-12] MEDS ORDERED: FAMOTIDINE 20MG TABLET PO SCH (21:00)
[2022-05-12] MEDS: METHYLPREDNISOLONE SOD SUCC 40 MG/ML VIAL IV SCH (21:53)
[2022-05-13] VITALS: BP 111/73
[2022-05-13 04:00] VITALS: BP 109/73
[2022-05-13] MEDS: METHYLPREDNISOLONE SOD SUCC 40 MG/ML VIAL IV SCH (06:08)
[2022-05-13 08:00] VITALS: BP 103/69
[2022-05-13] MEDS ORDERED: FUROSEMIDE 40MG/4ML VIAL IVP SCH (09:00)
[2022-05-13] MEDS ORDERED: IPRATROPIUM/ALBUTEROL 0.5-3(2.5)MG/3ML NEB HHN PRN (10:30)
[2022-05-13] MEDS ORDERED: IPRATROPIUM/ALBUTEROL 0.5-3(2.5)MG/3ML NEB HHN SCH (12:00)
[2022-05-13 12:17] VITALS: BP 132/91
[2022-05-13 14:52] VITALS: BP 132/91
== END 2022-05-13 15:45 | disposition home or self-care (01) | DRG 194 ==
LOC: ER 08:53 → 7EST 13:46 → ENRESERV 16:29
PROVIDERS: ADMIT Internal Medicine; ATTEND Internal Medicine
DX: I11.0 Hypertensive heart disease with heart failure (principal); J96.20 Acute and chronic respiratory failure, unspecified whether with hypoxia or hypercapnia; E44.1 Mild protein-calorie malnutrition; E87.20 Acidosis, unspecified; I50.33 Acute on chronic diastolic (congestive) heart failure; J44.1 Chronic obstructive pulmonary disease with (acute) exacerbation; J44.9 Chronic obstructive pulmonary disease, unspecified; Z20.822 Contact with and (suspected) exposure to COVID-19; E11.9 Type 2 diabetes mellitus without complications; F17.210 Nicotine dependence, cigarettes, uncomplicated; F19.10 Other psychoactive substance abuse, uncomplicated; E87.1 Hypo-osmolality and hyponatremia; Z68.25 Body mass index [BMI] 25.0-25.9, adult
CPT/HCPCS: 36415; 71045; 80053; 83605; 83880; 84484; 85025; 87426; 94640; 99291; J1940; J2920; J2930; J7030

== ENCOUNTER 2022-06-10 22:36 | Inpatient (IN) | payer OTHER ==
[~2022-06-10] VITALS: Ht 165.1 cm; Wt 89.8 kg
[~2022-06-10 22:36] MED LIST changes: -FURO-152 PO
[2022-06-10] MEDS ORDERED: ALBUTEROL (0.083%) 2.5MG/3ML NEB HHN STA (22:40)
[2022-06-10] MEDS ORDERED: IPRATROPIUM BROMIDE (0.02%) 0.5MG/2.5ML NEB HHN STA (22:40)
[2022-06-10] MEDS ORDERED: MAGNESIUM 2 G PREMIX 50 ML IV STA (22:40)
[2022-06-10] MEDS ORDERED: METHYLPREDNISOLONE SOD SUCC 125 MG/2 ML VIAL IV STA (22:40)
[2022-06-10 23:35] LABS: BG BASE EXCESS 6.7 mmol/L (-2.0-2.0); BG CARBOXYHEMOGLOBIN 6.4 % (0.5-1.5); BG DEOXYHEMOGLOBIN 12.6 % (0.0-5.0); BG FRACTION INSPIRED OXYGEN 40; BG METHEMOGLOBIN 0.5 % (0.0-1.5); BG OXYGEN SATURATION 86.5 % (92.0-98.5); BG OXYHEMOGLOBIN 80.5 % (94.0-97.0); BG PCO2 104.1 mmHg (35.0-45.0); BG PH 7.203 (7.350-7.450); BG SAMPLE SITE RIGHT RADIAL; BG TOTAL HEMOGLOBIN 17.4 g/dL (12.0-18.0); BG VENT MODE MASK - BIPAP
[2022-06-10 23:49] LABS: HEMATOCRIT. 53.7 % (42.0-52.0); HEMOGLOBIN. 16.3 g/dL (14.0-18.0); MEAN CORPUSCULAR HEMOGLOBIN 26.1 pg (28.0-32.0); MEAN PLATELET VOLUME 9.1 fl (7.4-10.4); PLATELET 139 x1000/uL (130-400); RED BLOOD CELL COUNT 6.24 mill/uL (4.7-6.1); RED CELL DISTRIBUTION WIDTH 19.8 % (11.6-14.6)
[2022-06-10 23:57] LABS: CHLORIDE 99 mEq/L (98-107)
[2022-06-11 00:06] LABS: ETHANOL BLOOD < 10 mg/dL
[2022-06-11] MEDS ORDERED: FUROSEMIDE 40MG/4ML VIAL IVP NR (01:15)
[2022-06-11 01:29] LABS: BG BASE EXCESS 9.4 mmol/L (-2.0-2.0); BG CARBOXYHEMOGLOBIN 6.4 % (0.5-1.5); BG DEOXYHEMOGLOBIN 13.4 % (0.0-5.0); BG FRACTION INSPIRED OXYGEN 50; BG HCO3 ACT 40.8 mmol/L (22.0-26.0); BG METHEMOGLOBIN 0.2 % (0.0-1.5); BG OXYGEN SATURATION 85.7 % (92.0-98.5); BG PCO2 87.4 mmHg (35.0-45.0); BG PH 7.287 (7.350-7.450); BG PO2 51.5 mmHg (75.0-100.0); BG SAMPLE SITE RIGHT RADIAL; BG TOTAL HEMOGLOBIN 17.1 g/dL (12.0-18.0); BG VENT MODE MASK - BIPAP
[2022-06-11 08:04] LABS: BG BASE EXCESS 9.3 mmol/L (-2.0-2.0); BG CARBOXYHEMOGLOBIN 4.4 % (0.5-1.5); BG DEOXYHEMOGLOBIN 4.7 % (0.0-5.0); BG FRACTION INSPIRED OXYGEN 60; BG HCO3 ACT 40.1 mmol/L (22.0-26.0); BG METHEMOGLOBIN 0.4 % (0.0-1.5); BG OXYGEN SATURATION 95.1 % (92.0-98.5); BG OXYHEMOGLOBIN 90.5 % (94.0-97.0); BG PCO2 81.7 mmHg (35.0-45.0); BG PH 7.309 (7.350-7.450); BG SAMPLE SITE RIGHT RADIAL; BG TOTAL HEMOGLOBIN 17.6 g/dL (12.0-18.0); BG VENT MODE MASK - BIPAP
[2022-06-11] MEDS ORDERED: ONDANSETRON HCL 4MG/2ML INJ IV PRN (08:30)
[2022-06-11] MEDS ORDERED: ACETAMINOPHEN 325MG TABLET PO PRN (08:30)
[2022-06-11 08:39] LABS: *AMPHETAMINES SCREEN URINE NEGATIVE (NEGATIVE); *BARBITURATES SCREEN URINE NEGATIVE (NEGATIVE); *BENZODIAZEPINES SCREEN URINE NEGATIVE (NEGATIVE); *COCAINE SCREEN URINE NEGATIVE (NEGATIVE); CANNABINOID URINE SCREEN NEGATIVE (NEGATIVE); METHADONE URINE SCREEN NEGATIVE (NEGATIVE); OPIATES URINE SCREEN NEGATIVE (NEGATIVE); PHENCYCLIDINE URINE SCREEN NEGATIVE (NEGATIVE)
[2022-06-11] MEDS: METHYLPREDNISOLONE SOD SUCC 40 MG/ML VIAL IV SCH ×3 (08:46→23:57)
[2022-06-11] MEDS: FUROSEMIDE 40MG/4ML VIAL IVP SCH (09:00)
[2022-06-11 11:06] VITALS: BP 123/87
[2022-06-11 11:19] LABS: PLATELET ESTIMATE NORMAL
[2022-06-11 11:38] VITALS: BP 123/87
[2022-06-11] MEDS: IPRATROPIUM/ALBUTEROL 0.5-3(2.5)MG/3ML NEB HHN SCH ×3 (12:20→20:34)
[2022-06-11 16:00] VITALS: BP 98/50
[2022-06-11] MEDS: ENOXAPARIN 40MG/0.4ML SYR SUBCUT SCH (17:14)
[2022-06-11 18:00] VITALS: BP 103/68
[2022-06-11 20:00] VITALS: BP 116/77
[2022-06-11] MEDS: FAMOTIDINE 20MG TABLET PO SCH (21:25)
[2022-06-11 22:00] VITALS: BP 108/65
[2022-06-12] VITALS (15 sets, daily range): BP systolic 92–133; BP diastolic 60–84
[2022-06-12] MEDS: IPRATROPIUM/ALBUTEROL 0.5-3(2.5)MG/3ML NEB HHN SCH ×6 (00:18→21:52)
[2022-06-12 07:03] LABS: HEMATOCRIT. 49.7 % (42.0-52.0); HEMOGLOBIN. 15.2 g/dL (14.0-18.0); MEAN CORPUSCULAR HEMOGLOBIN 25.6 pg (28.0-32.0); MEAN CORPUSCULAR VOLUME 83.9 fL (80.0-94.0); MEAN PLATELET VOLUME 9.5 fl (7.4-10.4); PLATELET 145 x1000/uL (130-400); RED BLOOD CELL COUNT 5.93 mill/uL (4.7-6.1); RED CELL DISTRIBUTION WIDTH 19.3 % (11.6-14.6)
[2022-06-12 09:04] LABS: BG BASE EXCESS 11.9 mmol/L (-2.0-2.0); BG DEOXYHEMOGLOBIN 12.1 % (0.0-5.0); BG FRACTION INSPIRED OXYGEN 32; BG HCO3 ACT 42.5 mmol/L (22.0-26.0); BG METHEMOGLOBIN 0.3 % (0.0-1.5); BG OXYGEN SATURATION 87.6 % (92.0-98.5); BG OXYHEMOGLOBIN 85.6 % (94.0-97.0); BG PCO2 85.8 mmHg (35.0-45.0); BG PH 7.313 (7.350-7.450); BG PO2 57.8 mmHg (75.0-100.0); BG SAMPLE SITE RIGHT RADIAL; BG TOTAL HEMOGLOBIN 15.4 g/dL (12.0-18.0); BG VENT MODE NASAL CANNULA
[2022-06-12] MEDS: METHYLPREDNISOLONE SOD SUCC 40 MG/ML VIAL IV SCH ×2 (09:10→17:22)
[2022-06-12] MEDS: FUROSEMIDE 40MG/4ML VIAL IVP SCH (09:11)
[2022-06-12] MEDS: ENOXAPARIN 40MG/0.4ML SYR SUBCUT SCH (09:11)
[2022-06-12 12:18] LABS: PLATELET ESTIMATE NORMAL
[2022-06-12] MEDS: FAMOTIDINE 20MG TABLET PO SCH (20:29)
[2022-06-13] VITALS (12 sets, daily range): BP systolic 107–143; BP diastolic 56–100
[2022-06-13] MEDS: IPRATROPIUM/ALBUTEROL 0.5-3(2.5)MG/3ML NEB HHN SCH ×5 (00:50→20:32)
[2022-06-13] MEDS: METHYLPREDNISOLONE SOD SUCC 40 MG/ML VIAL IV SCH ×3 (01:01→17:50)
[2022-06-13 08:28] LABS: CHLORIDE 93 mEq/L (98-107)
[2022-06-13] MEDS: ENOXAPARIN 40MG/0.4ML SYR SUBCUT SCH (09:04)
[2022-06-13] MEDS: FAMOTIDINE 20MG TABLET PO SCH (21:33)
[2022-06-14] VITALS (7 sets, daily range): BP systolic 114–146; BP diastolic 76–96
[2022-06-14] MEDS: METHYLPREDNISOLONE SOD SUCC 40 MG/ML VIAL IV SCH ×2 (00:20→08:03)
[2022-06-14] MEDS: IPRATROPIUM/ALBUTEROL 0.5-3(2.5)MG/3ML NEB HHN SCH ×4 (00:24→11:38)
[2022-06-14] MEDS: ENOXAPARIN 40MG/0.4ML SYR SUBCUT SCH (08:03)
== END 2022-06-14 13:28 | disposition home or self-care (01) | DRG 194 ==
LOC: ER 22:36 → MICUSO 06-11 00:04 → EDBEDREQTM 06-11 00:07 → EDBEDREQ 06-11 00:07 → EDBEDREQDT 06-11 00:07 → EDBEDREQSVC 06-11 08:48 → 5EST 06-11 11:42
PROVIDERS: ADMIT Internal Medicine; ATTEND Internal Medicine
PROC: 5A09357 Assistance with Respiratory Ventilation, Less than 24 Consecutive Hours, Continuous Positive Airway Pressure (ICD-10-PCS; principal; 2022-06-10)
DX: I11.0 Hypertensive heart disease with heart failure (principal); J96.21 Acute and chronic respiratory failure with hypoxia; E44.1 Mild protein-calorie malnutrition; Z99.81 Dependence on supplemental oxygen; I50.33 Acute on chronic diastolic (congestive) heart failure; J44.1 Chronic obstructive pulmonary disease with (acute) exacerbation; J96.22 Acute and chronic respiratory failure with hypercapnia; D75.1 Secondary polycythemia; F17.210 Nicotine dependence, cigarettes, uncomplicated; F15.10 Other stimulant abuse, uncomplicated; Z68.30 Body mass index [BMI] 30.0-30.9, adult; Z79.899 Other long term (current) drug therapy; Z68.32 Body mass index [BMI] 32.0-32.9, adult
CPT/HCPCS: 36415; 36600; 71045; 80048; 80053; 80305; 80320; 82375; 82805; 83880; 84484; 85025; 87426; 87804; 93005; 93970; 94640; 94644; 94660; 99291; J1650; J1940; J2405; J2920; J2930; J3475; G0480

== ENCOUNTER 2022-07-23 06:42 | Emergency (ER) | payer MEDICAID, OTHER ==
[~2022-07-23] VITALS: Ht 165.1 cm; Wt 82.0 kg
[~2022-07-23 06:42] MED LIST changes: -FURO-151 MT
[2022-07-23 07:05] VITALS: BP 94/65
[2022-07-23] MEDS ORDERED: METHYLPREDNISOLONE SOD SUCC 125 MG/2 ML VIAL IV STA (07:35)
[2022-07-23] MEDS ORDERED: IPRATROPIUM BROMIDE (0.02%) 0.5MG/2.5ML NEB HHN STA (07:35)
[2022-07-23] MEDS: ALBUTEROL (0.083%) 2.5MG/3ML NEB HHN SCH ×3 (08:40→08:43)
[2022-07-23 09:17] LABS: HEMOGLOBIN. 14.5 g/dL (14.0-18.0); MEAN CORPUSCULAR HEMOGLOBIN 25.7 pg (28.0-32.0); MEAN CORPUSCULAR VOLUME 85.3 fL (80.0-94.0); RED BLOOD CELL COUNT 5.63 mill/uL (4.7-6.1); RED CELL DISTRIBUTION WIDTH 22.1 % (11.6-14.6)
[2022-07-23 09:28] LABS: CHLORIDE 97 mEq/L (98-107)
[2022-07-23 09:56] LABS: PLATELET ESTIMATE NORMAL
[2022-07-23 10:00] LABS: PLATELET 127 x1000/uL (130-400)
[2022-07-23] MEDS ORDERED: P20 MT (11:02)
== END 2022-07-23 14:05 | disposition home or self-care (01) ==
LOC: ER 06:42
DX: J44.1 Chronic obstructive pulmonary disease with (acute) exacerbation (principal); Z98.890 Other specified postprocedural states
CPT/HCPCS: 36415; 71045; 80053; 83880; 84484; 85025; 93005; 94640; 96374; 99285; J2930; Z7610

== ENCOUNTER 2022-07-26 09:30 | Inpatient (IN) | payer OTHER ==
[~2022-07-26] VITALS: Ht 172.7 cm; Wt 76.8 kg
[2022-07-26] VITALS (8 sets, daily range): BP systolic 90–130; BP diastolic 57–98
[2022-07-26] MEDS ORDERED: MAGNESIUM 2 G PREMIX 50 ML IV STA (09:41)
[2022-07-26] MEDS ORDERED: IPRATROPIUM BROMIDE (0.02%) 0.5MG/2.5ML NEB HHN STA (09:41)
[2022-07-26] MEDS ORDERED: METHYLPREDNISOLONE SOD SUCC 125 MG/2 ML VIAL IV STA (09:41)
[2022-07-26] MEDS ORDERED: ALBUTEROL (0.083%) 2.5MG/3ML NEB HHN STA (09:41)
[2022-07-26 10:04] LABS: BG BASE EXCESS 12.4 mmol/L (-2.0-2.0); BG CARBOXYHEMOGLOBIN 7.6 % (0.5-1.5); BG HCO3 ACT 43.5 mmol/L (22.0-26.0); BG METHEMOGLOBIN 0.3 % (0.0-1.5); BG OXYGEN SATURATION 47.9 % (92.0-98.5); BG OXYHEMOGLOBIN 44.1 % (94.0-97.0); BG PCO2 91.3 mmHg (35.0-45.0); BG PH 7.296 (7.350-7.450); BG PO2 < 30.3 mmHg (75.0-100.0); BG SAMPLE SITE RIGHT RADIAL; BG TOTAL HEMOGLOBIN 15.1 g/dL (12.0-18.0); BG VENT MODE ROOM AIR
[2022-07-26 11:10] LABS: BASOPHILS % 0.5 % (0.0-2.0); EOSINOPHILS % 0.8 % (0.0-5.0); HEMOGLOBIN. 14.2 g/dL (14.0-18.0); MEAN CORPUSCULAR HEMOGLOBIN 25.8 pg (28.0-32.0); MEAN CORPUSCULAR VOLUME 85.4 fL (80.0-94.0); MEAN PLATELET VOLUME 8.9 fl (7.4-10.4); MONOCYTES % 14.3 % (2.0-8.0); NEUTROPHILS % 70.4 % (40.0-76.0); PLATELET 181 x1000/uL (130-400); RED CELL DISTRIBUTION WIDTH 22.1 % (11.6-14.6)
[2022-07-26 11:22] LABS: CHLORIDE 96 mEq/L (98-107)
[2022-07-26 11:42] LABS: PLATELET ESTIMATE NORMAL
[2022-07-26 12:11] LABS: BG BASE EXCESS 10.5 mmol/L (-2.0-2.0); BG CARBOXYHEMOGLOBIN 7.9 % (0.5-1.5); BG DEOXYHEMOGLOBIN 0.3 % (0.0-5.0); BG FRACTION INSPIRED OXYGEN 100; BG HCO3 ACT 40.9 mmol/L (22.0-26.0); BG METHEMOGLOBIN 0.2 % (0.0-1.5); BG OXYGEN SATURATION 99.7 % (92.0-98.5); BG OXYHEMOGLOBIN 91.6 % (94.0-97.0); BG PCO2 85.2 mmHg (35.0-45.0); BG PH 7.299 (7.350-7.450); BG PO2 188.9 mmHg (75.0-100.0); BG SAMPLE SITE LEFT RADIAL; BG TOTAL HEMOGLOBIN 14.5 g/dL (12.0-18.0); BG TOTAL RESPIRATORY RATE 18 b/min
[2022-07-26] MEDS ORDERED: FENTANYL CITRATE/PF 50MCG/ML 2ML VIAL IV ONE (12:15)
[2022-07-26] MEDS ORDERED: SUCCINYLCHOLINE CHLORIDE 200MG/10ML IV ONE (12:15)
[2022-07-26] MEDS ORDERED: ETOMIDATE 2MG/ML 10ML VIAL IV ONE (12:15)
[2022-07-26] MEDS ORDERED: PROPOFOL 10MG/ML 100ML 100 ML IV ONE (12:15)
[2022-07-26] MEDS ORDERED: IPRATROPIUM/ALBUTEROL 0.5-3(2.5)MG/3ML NEB HHN PRN (15:45)
[2022-07-26] MEDS ORDERED: ALBUTEROL (0.083%) 2.5MG/3ML NEB HHN PRN (16:00)
[2022-07-26] MEDS ORDERED: IPRATROPIUM BROMIDE (0.02%) 0.5MG/2.5ML NEB HHN PRN (16:00)
[2022-07-26] MEDS: METHYLPREDNISOLONE SOD SUCC 40 MG/ML VIAL IV SCH ×2 (16:28→23:55)
[2022-07-26] MEDS ORDERED: IPRATROPIUM/ALBUTEROL 0.5-3(2.5)MG/3ML NEB HHN SCH (18:00)
[2022-07-26 18:04] LABS: *AMPHETAMINES SCREEN URINE NEGATIVE (NEGATIVE); *BARBITURATES SCREEN URINE NEGATIVE (NEGATIVE); *BENZODIAZEPINES SCREEN URINE NEGATIVE (NEGATIVE); *COCAINE SCREEN URINE NEGATIVE (NEGATIVE); CANNABINOID URINE SCREEN NEGATIVE (NEGATIVE); METHADONE URINE SCREEN NEGATIVE (NEGATIVE); OPIATES URINE SCREEN NEGATIVE (NEGATIVE); PHENCYCLIDINE URINE SCREEN NEGATIVE (NEGATIVE)
[2022-07-26] MEDS: ALBUTEROL (0.083%) 2.5MG/3ML NEB HHN SCH (21:45)
[2022-07-26] MEDS: IPRATROPIUM BROMIDE (0.02%) 0.5MG/2.5ML NEB HHN SCH (21:45)
[2022-07-27] VITALS (19 sets, daily range): BP systolic 95–121; BP diastolic 48–96
[2022-07-27] MEDS: ALBUTEROL (0.083%) 2.5MG/3ML NEB HHN SCH ×4 (03:15→20:02)
[2022-07-27] MEDS: IPRATROPIUM BROMIDE (0.02%) 0.5MG/2.5ML NEB HHN SCH ×4 (03:15→20:02)
[2022-07-27] MEDS: METHYLPREDNISOLONE SOD SUCC 40 MG/ML VIAL IV SCH ×2 (08:22→15:52)
[2022-07-27] MEDS ORDERED: ONDANSETRON HCL 4MG/2ML INJ IV PRN (08:45)
[2022-07-27] MEDS ORDERED: LORAZEPAM 0.5MG TABLET PO PRN (08:45)
[2022-07-27] MEDS ORDERED: IPRATROPIUM/ALBUTEROL 0.5-3(2.5)MG/3ML NEB HHN PRN (08:45)
[2022-07-27] MEDS ORDERED: HYDROCODONE/ACETAMINOPHEN 5/325MG TABLET PO PRN (08:45)
[2022-07-27] MEDS ORDERED: ACETAMINOPHEN 325MG TABLET PO PRN ×2 (08:45)
[2022-07-27] MEDS ORDERED: DOCUSATE SODIUM 100MG CAPSULE PO PRN (08:45)
[2022-07-27] MEDS ORDERED: CLONIDINE 0.1MG TABLET PO PRN (08:45)
[2022-07-27] MEDS ORDERED: ALBUTEROL (0.083%) 2.5MG/3ML NEB HHN PRN (09:00)
[2022-07-27] MEDS ORDERED: IPRATROPIUM BROMIDE (0.02%) 0.5MG/2.5ML NEB HHN PRN (09:00)
[2022-07-27] MEDS ORDERED: FUROSEMIDE 40MG/4ML VIAL IVP NR (12:00)
[2022-07-27 15:26] LABS: CLARITY URINE CLEAR (CLEAR); COLOR URINE YELLOW (YELLOW); KETONES URINE NEGATIVE (NEGATIVE); LEUKOCYTE ESTERASE URINE NEGATIVE (NEGATIVE); NITRITE URINE NEGATIVE (NEGATIVE); OCCULT BLOOD URINE NEGATIVE (NEGATIVE); PH URINE 5.5 (4.5-8.0); PROTEIN URINE TRACE (NEGATIVE); SPECIFIC GRAVITY URINE 1.011 (1.005-1.030)
[2022-07-27] MEDS ORDERED: NALOXONE HCL 0.4MG/ML VIAL IV PRN (17:00)
[2022-07-28] VITALS (7 sets, daily range): BP systolic 108–134; BP diastolic 70–89
[2022-07-28] MEDS: METHYLPREDNISOLONE SOD SUCC 40 MG/ML VIAL IV SCH ×3 (00:12→15:28)
[2022-07-28] MEDS: ALBUTEROL (0.083%) 2.5MG/3ML NEB HHN SCH ×4 (01:16→16:03)
[2022-07-28] MEDS: IPRATROPIUM BROMIDE (0.02%) 0.5MG/2.5ML NEB HHN SCH ×4 (01:16→16:03)
[2022-07-28 06:03] LABS: HEMATOCRIT. 43.9 % (42.0-52.0); HEMOGLOBIN. 13.3 g/dL (14.0-18.0); MEAN CORPUSCULAR HEMOGLOBIN 25.7 pg (28.0-32.0); MEAN CORPUSCULAR VOLUME 85.1 fL (80.0-94.0); RED BLOOD CELL COUNT 5.15 mill/uL (4.7-6.1); RED CELL DISTRIBUTION WIDTH 21.4 % (11.6-14.6)
[2022-07-28 06:24] LABS: CHLORIDE 94 mEq/L (98-107)
[2022-07-28 10:25] LABS: NUCLEATED RED BLOOD CELLS 2 /100 WBC
[2022-07-28 10:26] LABS: MEAN PLATELET VOLUME 9.2 fl (7.4-10.4); PLATELET ESTIMATE NORMAL
[2022-07-28 10:27] LABS: PLATELET 150 x1000/uL (130-400)
[2022-07-28] MEDS ORDERED: SODIUM POLYSTYRENE SULFONATE 15 G/60 ML BOT PO NR (11:15)
== END 2022-07-28 20:35 | disposition left against medical advice (07) | DRG 140 ==
LOC: ER 09:53 → MICUSO 12:01 → EDBEDREQ 12:10 → EDBEDREQTM 12:10 → 5EST 15:20
PROVIDERS: ADMIT Internal Medicine; ATTEND Internal Medicine
PROC: 5A09357 Assistance with Respiratory Ventilation, Less than 24 Consecutive Hours, Continuous Positive Airway Pressure (ICD-10-PCS; principal; 2022-07-26)
PROC: 5A09357 Assistance with Respiratory Ventilation, Less than 24 Consecutive Hours, Continuous Positive Airway Pressure (ICD-10-PCS; 2022-07-27)
PROC: 5A09357 Assistance with Respiratory Ventilation, Less than 24 Consecutive Hours, Continuous Positive Airway Pressure (ICD-10-PCS; 2022-07-28)
DX: J44.1 Chronic obstructive pulmonary disease with (acute) exacerbation (principal); J96.22 Acute and chronic respiratory failure with hypercapnia; E44.1 Mild protein-calorie malnutrition; E87.29 Other acidosis; N17.9 Acute kidney failure, unspecified; I50.30 Unspecified diastolic (congestive) heart failure; I07.1 Rheumatic tricuspid insufficiency; F17.210 Nicotine dependence, cigarettes, uncomplicated; Z20.822 Contact with and (suspected) exposure to COVID-19; Z53.29 Procedure and treatment not carried out because of patient's decision for other reasons; Z99.81 Dependence on supplemental oxygen
CPT/HCPCS: 36415; 36600; 71045; 80048; 80053; 80305; 81003; 82375; 82805; 83880; 84484; 85025; 87426; 87804; 93005; 94640; 94660; 99291; C9803; J1940; J2920; J2930; J3475

== ENCOUNTER 2022-08-10 07:49 | Inpatient (IN) | payer OTHER ==
[~2022-08-10] VITALS: Ht 172.7 cm; Wt 77.0 kg
[2022-08-10 09:27] LABS: BG BASE EXCESS 6.9 mmol/L (-2.0-2.0); BG CARBOXYHEMOGLOBIN 5.2 % (0.5-1.5); BG FRACTION INSPIRED OXYGEN 38; BG HCO3 ACT 36.6 mmol/L (22.0-26.0); BG METHEMOGLOBIN 0.5 % (0.0-1.5); BG OXYGEN SATURATION 91.5 % (92.0-98.5); BG OXYHEMOGLOBIN 86.3 % (94.0-97.0); BG PCO2 76.1 mmHg (35.0-45.0); BG PO2 71.9 mmHg (75.0-100.0); BG SAMPLE SITE LEFT BRACHIAL; BG TOTAL HEMOGLOBIN 15.6 g/dL (12.0-18.0); BG VENT MODE NASAL CANNULA
[2022-08-10] MEDS ORDERED: FUROSEMIDE 40MG/4ML VIAL IVP NR (10:00)
[2022-08-10 10:28] LABS: HEMATOCRIT. 47.7 % (42.0-52.0); HEMOGLOBIN. 14.4 g/dL (14.0-18.0); MEAN CORPUSCULAR HEMOGLOBIN 25.5 pg (28.0-32.0); MEAN CORPUSCULAR VOLUME 84.7 fL (80.0-94.0); MEAN PLATELET VOLUME 9.5 fl (7.4-10.4); PLATELET 149 x1000/uL (130-400); RED BLOOD CELL COUNT 5.63 mill/uL (4.7-6.1); RED CELL DISTRIBUTION WIDTH 21.2 % (11.6-14.6)
[2022-08-10 10:37] LABS: CHLORIDE 99 mEq/L (98-107)
[2022-08-10 10:53] LABS: NUCLEATED RED BLOOD CELLS 1 /100 WBC
[2022-08-10 10:55] LABS: PLATELET ESTIMATE NORMAL
[2022-08-10] MEDS ORDERED: LEVOFLOXACIN 500MG PREMIX 100 ML IV NR (11:00)
[2022-08-10 11:25] LABS: CREATINE KINASE 355 IU/L (39-308)
[2022-08-10] MEDS ORDERED: CLONIDINE 0.1MG TABLET PO PRN (14:15)
[2022-08-10] MEDS ORDERED: ACETAMINOPHEN 325MG TABLET PO PRN (14:15)
[2022-08-10] MEDS ORDERED: DIPHENHYDRAMINE 50MG/ML VIAL IV PRN (14:15)
[2022-08-10] MEDS ORDERED: ONDANSETRON HCL 4MG/2ML INJ IV PRN (14:15)
[2022-08-10] MEDS ORDERED: IPRATROPIUM/ALBUTEROL 0.5-3(2.5)MG/3ML NEB HHN PRN (14:15)
[2022-08-10] MEDS ORDERED: BUDESONIDE 0.5MG/2ML NEB HHN SCH (14:30)
[2022-08-10] MEDS ORDERED: ALBUTEROL (0.083%) 2.5MG/3ML NEB HHN PRN (14:30)
[2022-08-10] MEDS ORDERED: PREDNISONE 20MG TABLET PO SCH (14:30)
[2022-08-10] MEDS ORDERED: METHYLPREDNISOLONE SOD SUCC 125 MG/2 ML VIAL IV SCH (14:30)
[2022-08-10] MEDS ORDERED: IPRATROPIUM BROMIDE (0.02%) 0.5MG/2.5ML NEB HHN PRN (14:30)
[2022-08-10 16:21] LABS: CLARITY URINE CLEAR (CLEAR); COLOR URINE YELLOW (YELLOW); KETONES URINE NEGATIVE (NEGATIVE); LEUKOCYTE ESTERASE URINE NEGATIVE (NEGATIVE); NITRITE URINE NEGATIVE (NEGATIVE); OCCULT BLOOD URINE NEGATIVE (NEGATIVE); PH URINE 5.5 (4.5-8.0); PROTEIN URINE NEGATIVE (NEGATIVE); SPECIFIC GRAVITY URINE 1.009 (1.005-1.030)
[2022-08-10 16:50] LABS: *AMPHETAMINES SCREEN URINE NEGATIVE (NEGATIVE); *BARBITURATES SCREEN URINE NEGATIVE (NEGATIVE); *BENZODIAZEPINES SCREEN URINE NEGATIVE (NEGATIVE); *COCAINE SCREEN URINE NEGATIVE (NEGATIVE); CANNABINOID URINE SCREEN NEGATIVE (NEGATIVE); METHADONE URINE SCREEN NEGATIVE (NEGATIVE); OPIATES URINE SCREEN NEGATIVE (NEGATIVE); PHENCYCLIDINE URINE SCREEN NEGATIVE (NEGATIVE)
[2022-08-10] MEDS: FUROSEMIDE 40MG/4ML VIAL IVP SCH (18:00)
[2022-08-10] MEDS: ALBUTEROL (0.083%) 2.5MG/3ML NEB HHN SCH (22:52)
[2022-08-10] MEDS: IPRATROPIUM BROMIDE (0.02%) 0.5MG/2.5ML NEB HHN SCH (22:54)
[2022-08-11] MEDS: ALBUTEROL (0.083%) 2.5MG/3ML NEB HHN SCH ×2 (04:33→08:25)
[2022-08-11] MEDS: IPRATROPIUM BROMIDE (0.02%) 0.5MG/2.5ML NEB HHN SCH ×2 (04:34→08:25)
[2022-08-11 05:23] LABS: BASOPHILS % 0.7 % (0.0-2.0); EOSINOPHILS % 0.1 % (0.0-5.0); HEMATOCRIT. 49.1 % (42.0-52.0); HEMOGLOBIN. 15.1 g/dL (14.0-18.0); LYMPHOCYTES % 8.7 % (20.0-50.0); MEAN CORPUSCULAR VOLUME 84.6 fL (80.0-94.0); MEAN PLATELET VOLUME 9.6 fl (7.4-10.4); MONOCYTES % 6.6 % (2.0-8.0); NEUTROPHILS % 83.9 % (40.0-76.0); PLATELET 212 x1000/uL (130-400); RED BLOOD CELL COUNT 5.81 mill/uL (4.7-6.1); RED CELL DISTRIBUTION WIDTH 22.1 % (11.6-14.6)
[2022-08-11] MEDS: FUROSEMIDE 40MG/4ML VIAL IVP SCH (07:42)
[2022-08-11] MEDS ORDERED: FUROSEMIDE 40MG/4ML VIAL IVP SCH (09:00)
[2022-08-11 10:20] VITALS: BP 111/58
[2022-08-13 09:10] LABS: ANTI-NUCLEAR ANTIBODIES DIRECT Negative (Negative)
== END 2022-08-11 10:41 | disposition left against medical advice (07) | DRG 194 ==
LOC: ER 07:51 → MICUSO 14:01 → EDBEDREQSVC 14:05
PROVIDERS: ADMIT Internal Medicine; ATTEND Internal Medicine
PROC: 5A09357 Assistance with Respiratory Ventilation, Less than 24 Consecutive Hours, Continuous Positive Airway Pressure (ICD-10-PCS; principal; 2022-08-10)
DX: I13.0 Hypertensive heart and chronic kidney disease with heart failure and stage 1 through stage 4 chronic kidney disease, or unspecified chronic kidney disease (principal); J96.21 Acute and chronic respiratory failure with hypoxia; I21.4 Non-ST elevation (NSTEMI) myocardial infarction; G93.40 Encephalopathy, unspecified; I50.33 Acute on chronic diastolic (congestive) heart failure; J44.1 Chronic obstructive pulmonary disease with (acute) exacerbation; J96.22 Acute and chronic respiratory failure with hypercapnia; N17.9 Acute kidney failure, unspecified; E11.22 Type 2 diabetes mellitus with diabetic chronic kidney disease; Z20.822 Contact with and (suspected) exposure to COVID-19; N18.9 Chronic kidney disease, unspecified; N40.0 Benign prostatic hyperplasia without lower urinary tract symptoms; I07.1 Rheumatic tricuspid insufficiency; Z53.29 Procedure and treatment not carried out because of patient's decision for other reasons; F14.90 Cocaine use, unspecified, uncomplicated; F17.210 Nicotine dependence, cigarettes, uncomplicated; Z79.4 Long term (current) use of insulin; Z99.81 Dependence on supplemental oxygen; Z79.51 Long term (current) use of inhaled steroids; Z79.899 Other long term (current) drug therapy
CPT/HCPCS: 36415; 36600; 71045; 80048; 80305; 81003; 82375; 82550; 82805; 83605; 83880; 84484; 85025; 86038; 86160; 87426; 93005; 93970; 94640; 94660; 99291; C1893; C9803; J1940; J1956; J7512; J7626

== ENCOUNTER 2022-08-26 16:11 | Emergency (ER) | payer MEDICAID, OTHER ==
[~2022-08-26] VITALS: Ht 177.8 cm; Wt 132.0 kg
[2022-08-26] MEDS ORDERED: IPRATROPIUM BROMIDE (0.02%) 0.5MG/2.5ML NEB HHN STA (16:32)
[2022-08-26] MEDS ORDERED: MAGNESIUM 2 G PREMIX 50 ML IV STA (16:32)
[2022-08-26] MEDS ORDERED: ALBUTEROL (0.083%) 2.5MG/3ML NEB HHN STA (16:32)
[2022-08-26] MEDS ORDERED: METHYLPREDNISOLONE SOD SUCC 125 MG/2 ML VIAL IV STA (16:32)
[2022-08-26 17:48] LABS: BASOPHILS % 0.7 % (0.0-2.0); EOSINOPHILS % 0.5 % (0.0-5.0); HEMATOCRIT. 45.6 % (42.0-52.0); HEMOGLOBIN. 13.5 g/dL (14.0-18.0); LYMPHOCYTES % 9.6 % (20.0-50.0); MEAN CORPUSCULAR VOLUME 88.1 fL (80.0-94.0); MEAN PLATELET VOLUME 10.4 fl (7.4-10.4); MONOCYTES % 13.8 % (2.0-8.0); NEUTROPHILS % 75.4 % (40.0-76.0); PLATELET 129 x1000/uL (130-400); RED BLOOD CELL COUNT 5.18 mill/uL (4.7-6.1); RED CELL DISTRIBUTION WIDTH 21.4 % (11.6-14.6)
[2022-08-26 17:54] LABS: INR 1.2; PROTHROMBIN TIME 12.7 sec (9.6-11.0)
[2022-08-26 18:04] LABS: CHLORIDE 100 mEq/L (98-107)
[2022-08-26] MEDS ORDERED: METHYLPREDNISOLONE SOD SUCC 125 MG/2 ML VIAL IV NR (19:00)
[2022-08-26 21:00] VITALS: BP 141/88
== END 2022-08-26 21:00 | disposition left against medical advice (07) ==
LOC: ER 16:11 → SUPCPDRO 16:55 → EDBEDREQ 18:51 → EDBEDREQTM 18:51 → ER 21:00 → CANBEDREQ 08-27 02:48
DX: J44.1 Chronic obstructive pulmonary disease with (acute) exacerbation (principal); J96.00 Acute respiratory failure, unspecified whether with hypoxia or hypercapnia; I11.0 Hypertensive heart disease with heart failure; I50.43 Acute on chronic combined systolic (congestive) and diastolic (congestive) heart failure
CPT/HCPCS: 36415; 71045; 80053; 83605; 83880; 84145; 84484; 85025; 85610; 87040; 93005; 94644; 96365; 96366; 96375; 99291; J2930; J3475; Z7610

== ENCOUNTER 2022-08-28 17:09 | Emergency (ER) | payer MEDICAID, OTHER ==
[~2022-08-28] VITALS: Ht 177.8 cm; Wt 91.0 kg
[2022-08-28 18:33] LABS: BASOPHILS % 0.9 % (0.0-2.0); EOSINOPHILS % 0.2 % (0.0-5.0); HEMATOCRIT. 44.2 % (42.0-52.0); HEMOGLOBIN. 13.1 g/dL (14.0-18.0); LYMPHOCYTES % 9.2 % (20.0-50.0); MEAN CORPUSCULAR HEMOGLOBIN 25.5 pg (28.0-32.0); MEAN CORPUSCULAR VOLUME 86.1 fL (80.0-94.0); MEAN PLATELET VOLUME 9.4 fl (7.4-10.4); MONOCYTES % 11.9 % (2.0-8.0); NEUTROPHILS % 77.8 % (40.0-76.0); PLATELET 156 x1000/uL (130-400); RED BLOOD CELL COUNT 5.14 mill/uL (4.7-6.1); RED CELL DISTRIBUTION WIDTH 21.1 % (11.6-14.6)
[2022-08-28 18:43] LABS: CHLORIDE 97 mEq/L (98-107)
[2022-08-28] MEDS ORDERED: FUROSEMIDE 40MG/4ML VIAL IV ONE (21:15)
[2022-08-28] MEDS ORDERED: ASPIRIN 81MG TABLET PO ONE (21:15)
[2022-08-29 04:00] VITALS: BP 115/74
== END 2022-08-29 05:39 | disposition short-term general hospital (02) ==
LOC: ER 17:09 → EDBEDREQ 20:47 → EDBEDREQTM 20:47 → ER 08-29 05:39 → CANBEDREQ 08-29 10:01
DX: I50.43 Acute on chronic combined systolic (congestive) and diastolic (congestive) heart failure (principal); I21.4 Non-ST elevation (NSTEMI) myocardial infarction; N28.9 Disorder of kidney and ureter, unspecified; J44.9 Chronic obstructive pulmonary disease, unspecified; Z20.822 Contact with and (suspected) exposure to COVID-19
CPT/HCPCS: 36415; 71045; 80053; 83880; 84484; 85025; 87426; 93005; 96374; 99285; C9803; J1940; Z7610